=== PATIENT | male | born 1935 | race Caucasian/White ===

== ENCOUNTER 2020-08-26 10:07 | Emergency (ER) | payer MEDICARE, SELFPAY ==
[2020-08-26 10:08] VITALS: BP 144/81; PULSE 62; RESP 16; TEMP 36.2; O2SAT 97; BMI 26.6
--- NOTE | 2020-08-26 10:27 | CT_ITS ---
STUDY: CT BRAIN WITHOUT CONTRAST REASON FOR EXAM: Male, 85 years old. Dizziness RADIATION DOSAGE (If Supplied By Facility): CTDIvol = ( 44.99 ) mGy, DLP = ( 914.22 ) mGycm TECHNIQUE: Transaxial CT imaging of the brain was performed without administration of intravenous contrast material. Individualized dose optimization techniques were used for this CT. COMPARISON: No relevant priors. FINDINGS: Normal soft tissue structures. Normal calvarium. There is mild cerebral atrophy with widening of the extra-axial spaces and ventricular dilatation. There are areas of decreased attenuation within the white matter tracts of the supratentorial brain, consistent with microvascular disease changes. Normal basal ganglia and thalami. Normal brainstem. Normal cerebellum. There is no intracranial hemorrhage. There are no findings of an acute ischemic infarction. Atherosclerotic plaque calcification of the vertebral arteries and cavernous portions of the internal carotid arteries bilaterally. There is a 1.4 cm polyp or retention cyst at the base of the right maxillary sinus. Minimal mucosal thickening of the lateral wall of left maxillary sinus. Minimal thickening of the ethmoid sinuses. CT/Brain/Head without Contrast IMPRESSION: Chronic involutional changes of the brain. Mild changes in the sinuses as described. Electronically Signed: Young Karimi MD at 11:57 EDT , Service support ,
--- NOTE | 2020-08-26 10:29 | EKG12_ITS ---
Test Reason : DIZZINESS Blood Pressure : / mmHG Vent. Rate : 060 BPM Atrial Rate : 060 BPM P-R Int : 192 ms QRS Dur : 144 ms QT Int : 454 ms P-R-T Axes : 057 -24 028 degrees QTc Int : 454 ms Normal sinus rhythm Right bundle branch block Septal infarct , age undetermined Abnormal ECG Confirmed by AKIKO RIGGS, MERLIN ([id number]), publications editor LYUBOV HOFFMAN ([id number]) on 08/28/2020 10:39:26 A M Referred By: AMADEO Confirmed By:FRANK WHARTON MD
--- NOTE | 2020-08-26 10:30 | EX.ED.DYSGE1 ---
HPI History of Present Illness Chief Complaint: Dizziness Informant: patient and spouse/S.O. Onset/Context/Timing Onset: Today Context: Gradual Onset Timing: Intermittent Current Severity: Mild Maximum Severity: Mild Narrative Narrative: Dizziness at times is off balance or other times with somewhat spinning. No headache, chest pain or shortness of breath. No abdominal pain, nausea, vomiting or diarrhea. No headache. No recent head trauma. He is on no blood thinners. States he has had similar to this before not this bad it was secondary to his allergies and it got better with rkwf-tuo-[id number] medication. 85-year-old male with limited past medical history. History of prostate cancer that he received radiation. Currently is on no medications. He denies any strokes or mini strokes. He denies any weakness of his arms or legs. Prior similar symptoms: No Recent Illness/Hospitalization: No PFSH PFSH Medical History (Updated 08/26/20 @ 12:[address] Oneil Ward MD) History of prostate cancer Home Medications cholecalciferol (vitamin D3) [Vitamin D3] 25 mcg PO DAILY 08/26/20 [History Last Taken Unknown] multivitamin 1 tab PO DAILY 08/26/20 [History Last Taken Unknown] Allergy/AdvReac Type Severity Reaction Status Date / Time No Known Allergies Allergy Verified 08/26/20 10:12 Surgical History (Updated 08/26/20 @ 10:56 by Orlando Francois) History of hernia repair History of tonsillectomy and adenoidectomy Social History Smoking Status: Never smoker ROS ROS ED ROS Narrative Denies any recent illness. Review of Systems ROS Unobtainable: Denies due to encephalopathy Constitutional Constitutional ED: Denies chills or fever(s) Eyes Eyes: Denies change in vision ENT ENT ED: Denies ear pain or sore throat Cardiovascular Cardiovascular: Denies chest pain or palpitations Respiratory/Chest Respiratory/Chest: Denies dyspnea Gastrointestinal Gastrointestinal: Denies abdominal pain, constipation, diarrhea, nausea or vomiting Genitourinary Genitourinary ED: Denies dysuria Musculoskeletal Musculoskeletal: Denies myalgias Integumentary Denies rash Neurologic Neurologic: Denies headache(s) Psychiatric Psychiatric: Denies depression Endocrine Endocrinology: Denies polyuria EXAM Physical Exam Narrative Exam Narrative: Older male no acute distress. Vital signs stable afebrile. Current blood pressure 144/81. He does not look septic or toxic. H EENT exam normal. No droop. Normal speech. Lungs clear to auscultation. Heart regular rhythm no murmur. Rate about 60. Abdomen soft nontender normal bowel sounds no peritoneal signs. Moving all 4 extremities. Neurovascular intact. Nontender no edema. Back nontender. Neurologic exam normal NIH is 0. Fingertip to nose within normal limits. Normal wedding consultant strength in both upper extremities and normal dorsi plantar flexion. Const Vital Signs: 08/26/20 10:08 08/26/20 11:08 Temperature 97.1 F L Temperature Source Temporal Pulse Rate 62 Pulse Rate [Lying] 62 Pulse Rate [Sitting] 70 Pulse Rate [Standing] 76 Respiratory Rate 16 Respiratory Effort Normal Respiratory Pattern Normal Blood Pressure 144/81 H Blood Pressure [Lying] 140/69 H Blood Pressure [Sitting] 148/72 H Blood Pressure [Standing] 150/77 H Blood Pressure Mean 102 Blood Pressure Mean [Lying] 92 Blood Pressure Mean [Sitting] 97 Blood Pressure Mean [Standing] 101 Pulse Ox 97 Oxygen Delivery Method Room Air Positive well nourished and well developed General Appearance ED: well developed HEENT Reports moist mucous membranes Negative for trauma or tenderness Eyes PERRL and EOMs intact bilaterally General Eye ED: Negative for pale conjunctiva Neck no lymphadenopathy, supple and no JVD General: Negative for tenderness Chest Wall inspection of chest normal and palpation of chest normal Resp normal respiratory effort and clear to auscultation bilaterally Effort and Inspection: Negative for pain with movement Auscultation: Negative for rhonchi, wheezes or diminished lung sounds Cardio regular rate, regular rhythm, S1 normal heart sound, S2 normal heart sound and no murmurs Rate: Negative for bradycardia or tachycardic GI normal to inspection, nondistended, normoactive bowel sounds, non-tender, non-distended and no masses Inspection: Negative for abdominal distention Auscultation: normoactive bowel sounds Palpation: soft; Negative for tender, guarding or rebound tenderness present Back/Spine no CVA tenderness General Back: Negative for CVA tenderness Cervical Spine: Negative for cervical spine tenderness Thoracic Spine / Upper Back: Negative for thoracic spinal tenderness or paraspinal muscle tenderness Extremity normal to inspection General Extremety ED: Negative for edema or tenderness General Extremity: Negative for edema Neuro oriented x3 and CN's II-XII intact bilaterally Sensorium / Orientation: alert Motor Exam: strength 5/5 throughout Psych mental status grossly normal Mood & Affect: Negative for depressed or tearful Skin no rashes or lesions noted and no wounds MDM MDM MDM Narrative Medical decision making narrative: 81-year-old male with limited past medical history. Generally very healthy. Complaining of dizziness. Benign exam. CAT scan labs and orthostatic vital signs are pending. Repeat exam patient is doing well at 12:20 PM. Exam is normal. Neurologic exam remains normal. He has ambulated to the bathroom without difficulty. Neuro exam currently his NIH is 0. Unchanged. He and his are comfortable with him being discharged home. Lab Data Attestation: I reviewed the patient's lab results. Lab results narrative: CBC normal with a white count of 5. Hemoglobin 13. Chemistries unremarkable. Gap of 3. Normal creatinine. Normal glucose. EKG was unremarkable normal sinus rhythm rate of 60 with a right bundle branch block. Radiologist read his CAT scan is unremarkable I did review it. Labs: Laboratory Results - last 24 hr 08/26/20 08/26/20 11:04 11:04 WBC 5.3 RBC 4.21 L Hgb 13.3 Hct 39.7 L MCV 94.3 H MCH 31.6 MCHC 33.5 RDW Std Deviation 47.6 H RDW Coeff of Radha 13.8 Plt Count 209 MPV 11.0 Immature Gran % (Auto) 0.600 Neut % (Auto) 60.7 Lymph % (Auto) 22.5 [place] % (Auto) 12.1 H Eos % (Auto) 3.2 Baso % (Auto) 0.9 Absolute Neuts (auto) 3.2 Absolute Lymphs (auto) 1.19 Nucleated RBC % 0 Sodium 141 Potassium 4.0 Chloride 106 Carbon Dioxide 32.0 Anion Gap 3 L BUN 20 H Creatinine 0.83 Estim Creat Clear Calc 83.49 Est GFR (MDRD) Af Amer 114 Est GFR (MDRD) Non-Af 94 BUN/Creatinine Ratio 24.1 H Glucose 100 Calcium 8.9 Radiography Diagnostic Testing: Radiology Impression Brain CT 08/26/20 10:27 IMPRESSION: Chronic involutional changes of the brain. Mild changes in the sinuses as described. Electronically Signed: Young Karimi MD at 11:57 EDT , Service support , EKG Initial EKG: Attestation: I personally reviewed and interpreted this EKG as follows: Interpretation: Sinus Rhythm, No Acute Injury Pattern and RBBB Comments: Normal sinus rhythm rate of 60 with a right bundle branch block. No old EKG available for comparison. Discharge Plan Triage Chief Complaint: Dizziness ED Provider: Oneil Ward Dx/Rx/DC Orders Clinical Impression: Dizziness Instructions: ED Dizziness, Uncertain Cause Prescriptions: No Action multivitamin Tablet 1 tab PO DAILY RF: 0 cholecalciferol (vitamin D3) [Vitamin D3] 25 mcg (1,000 unit) Capsule 25 mcg PO DAILY RF: 0 Primary Care Provider: Ab Marcus Referrals: Ab Marcus MD [Primary Care Provider] - 3-5 Days if not improving Activity Restrictions/Additional Instructions: Follow-up with your primary care physician if this is not getting better going away. Return the emergency department if a lot worse or you develop other symptoms such as slurred speech or weakness in either your arms or legs. Your labs, CAT scan and EKG today were unremarkable. Disposition Disposition: Home, self care
[2020-08-26] MEDS: 0.9% Normal Saline 1,000 ML 1000 ML IV (11:07)
[2020-08-26 11:08] VITALS: BP 140/69; BP 148/72; BP 150/77; PULSE 62; PULSE 70; PULSE 76
[2020-08-26 11:26] LABS: Absolute Lymphocyte Count 1.19 X10^3/uL (0.83-4.51); Absolute Neutrophil Count 3.2 X10^3/uL (2.0-7.7); Basophil# 0.05 X10^3/uL; Basophil% 0.9 % (0-1); Eosinophil# 0.17 X10^3/uL; Eosinophils% 3.2 % (0-5); Hematocrit 39.7 % (40-54); Hemoglobin 13.3 g/dL (13.0-16.5); Lymphocyte # 1.19 X10^3/ul (0.83-4.51); Lymphocyte % 22.5 % (19-41); Mean Corp Hgb Conc 33.5 g/dL (32-36); Mean Corpuscular Hgb 31.6 pg (27.0-32.0); Mean Corpuscular Volume 94.3 fL (80-94); Monocyte# 0.64 X10^3/uL; Monocyte% 12.1 % (0-10); NRBC Flagged by Analyzer 0 % (0-5); Neutrophil % 60.7 % (47-70); Platelet Count 209 K/mm3 (150-450); RBC Distribution Width CV 13.8 % (11.6-14.6); RBC Distribution Width SD 47.6 fl (35.1-43.9); Red Blood Count 4.21 M/mm3 (4.6-6.2); White Blood Count 5.3 K/mm3 (4.4-11.0)
[2020-08-26 11:38] LABS: Anion Gap 3 (5-15); BUN 20 mg/dL (7-18); BUN/Creat Ratio 24.1 RATIO (10-20); Calcium,Total 8.9 mg/dL (8.5-10.1); Chloride 106 mmol/L (98-107); Creatinine, Serum 0.83 mg/dL (0.70-1.30); EST Glomerular Filtration Rate 94 mL/min (>60); Est Glom Filt Rate - Afr Amer 114 mL/min (>60); Estimated Creatinine Clearance 83.49 ml/min; Glucose 100 mg/dL (74-106); Sodium Level 141 mmol/L (136-145)
[2020-08-26 12:19] VITALS: BP 149/79; PULSE 72; RESP 14; O2SAT 98
[2020-08-26 12:49] VITALS: BP 155/80; PULSE 60; RESP 14; O2SAT 99
== END 2020-08-26 12:51 | disposition home or self-care (01) ==
PROVIDERS: Emergency Provider Emergency Medicine; PCP Family Medicine
DX: R42 Dizziness and giddiness (principal); Z85.46 Personal history of malignant neoplasm of prostate; Z92.3 Personal history of irradiation
CPT/HCPCS: 70450; 80048; 85025; 93005; 96360; 96361; 99285; J7030